=== PATIENT | male | born 1945 | race Caucasian/White ===

== ENCOUNTER → 2020-03-06 14:10 | Outpatient (BNVA) | payer OTHER, SELFPAY | PROVIDERS: Referring Provider Family Medicine; Visit Provider Specialist | DX: M25.569 Pain in unspecified knee (principal); M23.304 Other meniscus derangements, unspecified medial meniscus, left knee | CPT/HCPCS: 73560; 73565 ==

== ENCOUNTER → 2022-01-22 10:44 | Outpatient (BNVA) | payer OTHER, SELFPAY | PROVIDERS: Visit Provider Specialist | DX: M17.12 Unilateral primary osteoarthritis, left knee (principal) | CPT/HCPCS: 73560; 73565 ==

== ENCOUNTER 2022-02-11 08:37 | Day surgery (SDC) | payer OTHER, SELFPAY ==
[2022-02-09 10:13] VITALS: BMI 39.9
[2022-02-11 08:58] VITALS: BP 154/91; PULSE 88; RESP 18; TEMP 36.5; O2SAT 93
[2022-02-11] MEDS: sodium chloride 0.9% 1,000 ML 30 ML IV (09:02)
--- NOTE | 2022-02-11 09:19 | P.ANESASSM_ITS ---
Pre-Anesthetic Assessment Height/Weight: Height 1.73 m Weight 119.295 kg Temp Pulse Resp BP Pulse Ox 97.7 F 88 18 154/91 93 02/11/22 08:58 02/11/22 08:58 02/11/22 08:58 02/11/22 08:58 02/11/22 08:58 Preop Diagnosis: diagnostic Operation Date: 02/11/22 10:00 Proposed Procedures p Colonoscopy 58344/z12.11(Not Applicable) - Jose C Jaffe MD Familial anesthetic complications: None Was Beta Lyndsey taken within 24 hours: Yes Was Clonidine taken within 24 hours: N/A Last intake: Intake Last Liquid Date 02/10/22 Last Liquid Time 22:00 Last Solid Date 02/09/22 Last Solid Time 18:30 Social No alcohol and No tobacco Exam alert, oriented x 3, clear to auscultation bilaterally and regular rate & rhythm Airway Submandibular: within normal limits Cervical ROM: within normal limits Mallampati: Class II Dentition: false CV/HEM Hypertension Metabolic Morbid Obesity [facility] Osteoarthritis/DJD Anesthetic Plan ASA status: 3 Anesthesia: MAC Medications/Allergies Home Medications Medication Instructions Recorded Confirmed Last Taken Type aspirin 650 mg tablet,delayed 650 mg PO BID PRN tab 03/06/20 02/09/22 02/08/22 History release cinnamon bark 500 mg capsule 500 mg PO DAILY 03/06/20 02/09/22 Unknown History (Cinnamon) garlic 1,000 mg capsule 1,000 mg PO DAILY 03/06/20 02/09/22 Unknown History hydrochlorothiazide 12.5 mg tablet 12.5 mg PO DAILY 03/06/20 02/09/22 Unknown History lisinopril 10 mg tablet 10 mg PO DAILY 03/06/20 02/09/22 Unknown History metoprolol tartrate 25 mg tablet 25 mg PO DAILY 03/06/20 02/09/22 Unknown Histo ry omega-3 fatty acids 1,000 mg 1,000 mg PO DAILY 03/06/20 02/09/22 Unknown History capsule (Fish Oil Concentrate) cholecalciferol (vitamin D3) 25 25 mcg PO DAILY 01/19/22 02/09/22 Unknown H istory mcg (1,000 unit) capsule niacin 1,000 mg PO DAILY 01/19/22 02/09/22 Unknown History meloxicam 15 mg tablet 15 mg PO DAILY #30 tab 03/24/22 04/11/22 Unknown Rx Allergies Allergy/AdvReac Type Severity Reaction Status Date / Time No Known Allergies Allergy Verified 01/22/22 10:27 Current Medications Generic Name Dose Route Start Last Admin Trade Name Freq PRN Reason Stop Dose Admin Sodium Chloride 1,000 mls @ 30 mls/hr 02/11/22 09:00 02/11/22 09:02 Sodium Chloride 0.9% IV 02/12/22 08:59 30 mls/hr .Q24H NETTE Administration PFSH Anesthesia Medical History Hypertension Surgical History History of colonoscopy History of foot surgery History of hand surgery Bilateral History of removal of cyst History of tonsillectomy and adenoidectomy Status post left inguinal hernia repair Social History Smoking and tobacco status: former smoker Alcohol intake: current Alcohol intake frequency: holidays/special occasions only Data Anesthesia Cardiac Studies: No Data to Display
--- NOTE | 2022-02-11 09:57 | P.HP_ITS ---
Same Day Surgery H&P Indication for Procedure/HPI DATE OF PROCEDURE: February 11, 2022 CHIEF COMPLAINT/INDICATIONFOR SURGICAL PROCEDURE: colonoscopy PREOP DIAGNOSIS: diagnostic PLANNED PROCEDURE: Operation Date: 02/11/22 10:00 Proposed Procedures p Colonoscopy 96784/z12.11(Not Applicable) - Jose C Jaffe MD Medications/Allergies* Home Medications Medication Instructions Recorded Confirmed Type aspirin 650 mg tablet,delayed 650 mg PO BID PRN tab 03/06/20 02/09/22 History release cinnamon bark 500 mg capsule 500 mg PO DAILY 03/06/20 02/09/22 History (Cinnamon) garlic 1,000 mg capsule 1,000 mg PO DAILY 03/06/20 02/09/22 History hydrochlorothiazide 12.5 mg tablet 12.5 mg PO DAILY 03/06/20 02/09/22 History lisinopril 10 mg tablet 10 mg PO DAILY 03/06/20 02/09/22 History metoprolol tartrate 25 mg tablet 25 mg PO DAILY 03/06/20 02/09/22 History omega-3 fatty acids 1,000 mg 1,000 mg PO DAILY 03/06/20 02/09/22 History capsule (Fish Oil Concentrate) cholecalciferol (vitamin D3) 25 25 mcg PO DAILY 01/19/22 02/09/22 History mcg (1,000 unit) capsule niacin 1,000 mg PO DAILY 01/19/22 02/09/22 History Allergies/Adverse Reactions Allergy/AdvReac Type Severity Reaction Status Date / Time No Known Allergies Allergy Verified 01/22/22 10:27 Current Medications: Generic Name Dose Route Start Last Admin Trade Name Freq PRN Reason Stop Dose Admin Sodium Chloride 1,000 mls @ 30 mls/hr 02/11/22 09:00 02/11/22 09:02 Sodium Chloride 0.9% IV 02/12/22 08:59 30 mls/hr .Q24H NETTE Administration Pertinent History/Comorbid Conditions* Medical History (Updated 01/19/22 @ 11:08 by Jose C Jaffe MD) Hypertension Surgical History (Updated 01/19/22 @ 10:50 by Jose C Jaffe MD) History of colonoscopy History of foot surgery History of hand surgery Bilateral History of removal of cyst History of tonsillectomy and adenoidectomy Status post left inguinal hernia repair Social History Smoking and tobacco status: former smoker Alcohol intake: current Alcohol intake frequency: holidays/special occasions only Pertinent Exam Findings alert, oriented x 3 and regular rate & rhythm Recommendations Surgery/Procedure today Coding Level of Care 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
[2022-02-11 10:29] VITALS: BP 149/83; PULSE 84; RESP 16; TEMP 36.1; O2SAT 94
--- NOTE | 2022-02-11 10:31 | ANE.PACU2 ---
Inpatient post-anesthesia follow up: Airway intact: Yes Vital signs: Temperature 97.7 F Pulse Rate 88 Respiratory Rate 18 Blood Pressure 154/91 Pulse Oximetry 93 Oxygen Delivery Me thod Room Air Oxygen Flow Rate Fraction of Inspir ed Oxygen Hydration adequate: Yes Nausea and vomiting: No Pain level: 1 Mental status: Baseline
[2022-02-11 10:40] VITALS: BP 157/82; PULSE 80; RESP 18; O2SAT 93
== END 2022-02-11 10:54 | disposition home or self-care (01) ==
PROVIDERS: Visit Provider Surgery
PROC: 0DJD8ZZ Inspection of Lower Intestinal Tract, Via Natural or Artificial Opening Endoscopic (ICD-10-PCS; CPT 45378; principal; 2022-02-11 10:00)
DX: Z12.11 Encounter for screening for malignant neoplasm of colon (principal); Z87.891 Personal history of nicotine dependence; K57.30 Diverticulosis of large intestine without perforation or abscess without bleeding; K64.8 Other hemorrhoids; I10 Essential (primary) hypertension; E66.01 Morbid (severe) obesity due to excess calories; Z68.41 Body mass index [BMI] 40.0-44.9, adult; M19.90 Unspecified osteoarthritis, unspecified site; Z79.82 Long term (current) use of aspirin
CPT/HCPCS: G0121; J2704; J7030

== ENCOUNTER → 2022-04-23 07:51 | Outpatient (BNVA) | payer OTHER, SELFPAY | PROVIDERS: Visit Provider Specialist | DX: M17.12 Unilateral primary osteoarthritis, left knee (principal); E66.01 Morbid (severe) obesity due to excess calories | CPT/HCPCS: 99214 ==

== ENCOUNTER → 2022-05-05 09:06 | Day surgery (SDC) | payer OTHER, SELFPAY | PROVIDERS: PCP Family Medicine; Visit Provider Specialist | DX: Z01.818 Encounter for other preprocedural examination (principal) | CPT/HCPCS: 93005 ==

== ENCOUNTER 2022-05-12 09:15 | Observation (INO) | payer OTHER, SELFPAY ==
[2022-05-05 08:54] VITALS: BMI 39.5
--- NOTE | 2022-05-05 09:06 | ECG_ITS ---
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 Measurements Intervals [place] Rate: 63 P: 26 GA: 182 QRS: 18 QRSD: 109 T: 38 QT: 417 QTc: 430 Interpretive Statements SINUS RHYTHM No previous ECG available for comparison Electronically Signed On 05-05-2022 16:58:40 CDT by Johnny Arriaza M.D. [id number]
[2022-05-05 09:32] LABS: Basophils # 0.1 10^3/uL (0.0-0.1); Basophils % 1.2 %; Eosinophils # 0.3 10^3/uL (0.0-0.8); Hematocrit 42.1 % (42.0-52.0); Hemoglobin 13.9 g/dL (11.7-16.6); Lymphocytes % 34.2 %; Mean Corpuscular Hemoglobin 31.2 pg (28.0-34.0); Mean Corpuscular Volume 94.6 fl (80-94); Mean Platelet Volume 9.4 fL (7.4-10.4); Monocytes # 0.7 10^3/uL (0.2-0.9); Monocytes % 11.7 %; Neutrophils # 2.84 10^3/uL (1.8-7.7); Neutrophils % 47.7 %; Nucleated Red Blood Cells % 0 %; Platelet Count 148 10^3/cmm (130-400); Red Blood Count 4.45 10^6/uL (4.1-5.3); Red Cell Distribution Width 13.6 % (12.1-15.1)
--- NOTE | 2022-05-05 09:34 | ANES.PREANE2 ---
Pre-Anesthetic Assessment Height/Weight: Height 1.73 m Weight 117.934 kg Preop Diagnosis: Osteoarthritis of left knee Operation Date: 05/12/22 07:00 Proposed Procedures p Total Knee Arthroplasty left 22516/left ostearthritis knee M17.10(Left) - Juliet Reynoso MD Familial anesthetic complications: None Social No alcohol and No tobacco formeer smoker Exam alert, oriented x 3, clear to auscultation bilaterally and regular rate & rhythm Airway Mallampati: Class III Dentition: false CV/HEM Hypertension Anesthetic Plan ASA status: 2 Anesthesia: General and Regional (specify below) (spinal + adductor canal) Risk of > 500 ml blood loss (7ml/kg in children): Yes, adequate IV access and fluids planned Medications/Allergies Home Medications Medication Instructions Recorded Confirmed Last Taken Type aspirin 650 mg tablet,delayed 650 mg PO BID PRN tab 03/06/20 05/05/22 04/29/22 History release cinnamon bark 500 mg capsule 500 mg PO DAILY 03/06/20 05/05/22 Unknown History (Cinnamon) garlic 1,000 mg capsule 1,000 mg PO DAILY 03/06/20 05/05/22 Unknown History hydrochlorothiazide 12.5 mg tablet 12.5 mg PO DAILY 03/06/20 05/05/22 Unknown History lisinopril 10 mg tablet 10 mg PO DAILY 03/06/20 05/05/22 Unknown History metoprolol tartrate 25 mg tablet 25 mg PO DAILY 03/06/20 05/05/22 Unknown History omega-3 fatty acids 1,000 mg 4,000 mg PO DAILY 03/06/20 05/05/22 Unknown History capsule (Fish Oil Concentrate) cholecalciferol (vitamin D3) 25 25 mcg PO DAILY 01/19/22 05/05/22 Unknown History mcg (1,000 unit) capsule meloxicam 15 mg tablet 15 mg PO DAILY #30 tab 01/22/22 05/05/22 Unknown Rx cetirizine 10 mg tablet (Zyrtec) 10 mg PO DAILY PRN 04/23/22 05/05/22 Unknown History fexofenadine 60 mg tablet (Sharri 60 mg PO DAILY tab 04/23/22 05/05/22 Unknown History Allergy) Allergies Allergy/AdvReac Type Severity Reaction Status Date / Time sulfamethoxazole Allergy ALGY-Hives Verified 05/05/22 08:49 [From Bactrim] trimethoprim [From Bactrim] Allergy ALGY-Hives Verified 05/05/22 08:49 [facility] Anesthesia Medical History Hypertension Surgical History History of colonoscopy (02/11/22) History of foot surgery History of hand surgery Bilateral History of removal of cyst History of tonsillectomy and adenoidectomy Status post left inguinal hernia repair Social History Smoking and tobacco status: former smoker Alcohol intake: current Alcohol intake frequency: holidays/special occasions only Data Anesthesia : 05/05/22 09:10 05/05/22 09:10 Short CBC 05/05/22 Range/Units 09:10 WBC 6.0 (4.0-10.0) 10^3/uL Hgb 13.9 (11.7-16.6) g/dL Hct 42.1 (42.0-52.0) % MCV 94.6 H (80-94) fl Plt Count 148 (130-400) 10^3/cmm Neut % (Auto) 47.7 % Neut # (Auto) 2.84 (1.8-7.7) 10^3/uL Cardiac Studies: No Data to Display
[2022-05-05 09:45] LABS: Alanine Aminotransferase 13 U/L (0-41); Albumin Level 4.1 g/dL (3.5-5.2); Alkaline Phosphatase 66 IU/L (40-130); Anion Gap 15.2 (5-19); Aspartate Amino Transferase 16 U/L (0-40); Blood Urea Nitrogen 14 mg/dL (8-23); Calcium 8.6 mg/dL (8.5-10.5); Carbon Dioxide 24 mmol/L (22-29); Chloride 100 mmol/L (98-107); Globulin 2.7 g/dL (1.3-4.6); Glucose 89 mg/dL (65-115); Osmolality Calculated 280 mOsm/kg (285-295); Potassium 4.2 mmol/L (3.5-5.1); Sodium 135 mmol/L (136-145); Total Bilirubin 0.4 mg/dL (0.15-1.2); Total Protein 6.8 g/dL (6.6-8.7)
[2022-05-05 10:47] LABS: Add Urine Microscopic? NO; Charge for UA Resulting for Rev
[2022-05-05 10:55] LABS: Bilirubin Urine Neg (Negative); Blood Urine Neg (Negative); Glucose Urine UA Norm (Normal); Ketones Urine Negative (Negative); Leukocyte Esterase Urine Negative (Negative); Nitrate Urine Negative (Negative); Protein Urine Neg (Negative); Urine Appearance Clear (CLEAR); Urine Color Yellow (Yellow); Urobilinogen Urine Norm (Negative); pH Urine 7 (5-7)
[2022-05-12] VITALS (19 sets, daily range): BP systolic 101–171; BP diastolic 43–88; PULSE 64–101; RESP 16–19; TEMP 36.1–37.1; O2SAT 95–100; BMI 39.5
[2022-05-12] MEDS: sodium chloride 0.9% 1,000 ML 30 ML IV (06:10)
[2022-05-12] MEDS: acetaminophen 1,000 MG/100 ML PIGGYBACK 400 MG IV ×3 (06:10→22:09)
--- NOTE | 2022-05-12 06:58 | W.PM.OPSUD ---
Surgery/Procedure H&P Update DATE OF PROCEDURE: May 12, 2022 DATE H&P PERFORMED: 04/23/22 H&P UPDATE INFORMATION: I have reviewed H&P completed within last 30 days, I have examined patient prior to procedure, No changes to prior documentation and H&P is in [facility] [place] date indicated PREOP DIAGNOSIS: Left Knee Degenerative joint disease PLANNED PROCEDURE: Operation Date: 05/12/22 07:00 Proposed Procedures p Total Knee Arthroplasty left 12695/left ostearthritis knee M17.10(Left) - Juliet Reynoso MD Related Problem List Diagnoses (1) Osteoarthritis of left knee: Qualifiers: Osteoarthritis type: primary Qualified Code(s): M17.12 - Unilateral primary osteoarthritis, left knee
[2022-05-12] MEDS: ceFAZolin 2,000 MG in sodium chloride 0.9% (plus) 50 ML 100 MG IV ×3 (07:04→23:26)
--- NOTE | 2022-05-12 07:38 | P.ANESUD_ITS ---
Pre-Anesthetic Update Pre-Anesthetic Assessment: Date of Surgery/Procedure: 05/12/22 Preop Elen gnosis: Left Knee Degenerative joint disease Proposed Procedure: Operation Date: 05/12/22 07:00 Proposed Procedures p Total Knee Arthroplasty left 87559/left ostearthritis knee M17.10(Left) - Juliet Reynoso MD Any changes to Pre-Anesthetic Assessment?: No Last Intake: Intake Last Liquid Date 05/11/22 Last Liquid Time 21:30 Last Solid Date 05/11/22 Last Solid Time 21:30 Vitals: Temperature 97.6 F 05/12/22 05:52 Temperature Source Temporal Artery S can 05/12/22 05:52 Pulse Rate 74 05/12/22 05:52 Respiratory Rate 16 05/12/22 05:52 Blood Pressure 171/88 05/12/22 05:52 Blood Pressure Felicitas n 115 05/12/22 05:52 Pulse Oximetry 96 05/12/22 05:52 Oxygen Delivery Me thod 05/12/22 05:52 Exam: Pre-Anes Outpt Exam: alert, oriented x 3, clear to auscultation bilaterally and regular rate & rhythm Cardiac Studies: No Data to Display Anesthesia Procedures Nerve Block: Nerve Block 1: Main Anesthesia: spinal anesthesia block Time Out Performed: Yes Consent: requested by attending/covering physician, from patient, risks and benefits reviewed and patient agrees to proceed Nerve block location: adductor canal (left) Anesthesia monitors applied: pulse oximetry, EKG, BP cuff and oxygen Nerve block position: supine Anesthetic Used: ropivicaine 0.5% Amount of anesthesia used (mL): 20 Ultrasound used to: recognize landmarks Nerve Stimulator Used?: No Interscalene/Femoral BLK: 4 stimuplex 21 g needle used for position and inplane approach Injection: neg aspiration of heme Patient Tolerated Procedure: well Complications: none
[2022-05-12] MEDS: ceFAZolin 1,000 mg SDV 2000 MG IRRIGATION (08:19)
[2022-05-12] MEDS: vancomycin 1,000 MG SDV 1000 MG XX (08:19)
--- NOTE | 2022-05-12 10:52 | XRR_ITS ---
PROCEDURE INFORMATION: Exam: XR Left Knee Exam date and time: 05/12/2022 11:04 AM Age: 77 years old Clinical indication: Device placement; Joint replacement hardware; Prior surgery; Surgery type: Total knee; Additional info: Status post left total knee arthroplasty TECHNIQUE: Imaging protocol: Radiologic exam of the Left knee. Views: 1 or 2 views. COMPARISON: CR XR knees AP WB w LT lmt ORTH 01/22/2022 10:52 AM FINDINGS: Bones/joints: Patient has undergone recent insertion of a total knee prosthesis. Some gas is present in the soft tissues from the recent surgery. No fracture. Soft tissues: See Bones/joints finding. XR/XR knee LT 1-2V 42610 IMPRESSION: Satisfactory appearance of the knee prosthesis.
--- NOTE | 2022-05-12 11:13 | PM.OP ---
Operative Report Date of procedure: May 12, 2022 Pre-op diagnosis: Left Knee Degenerative osteoarthritis Post-op diagnosis: Left Knee Degenerative osteoarthritis Post-op findings: Severe degenerative osteoarthritis with blood-tinged effusion Procedure done: Left total knee arthroplasty Implants: The Anastasiya total knee system with a size 7 triathlon beaded posterior stabilized femur left, a triathlon titanium tibial component size 7 beaded, a triathlon X3 posterior stabilized tibial bearing insert size 7 X 11 mm and a beaded triathlon titanium asymmetric patella size 38 x 11 mm Specimens removed/disposition: Joint fluid sent for gram stain and culture, synovium sent for pathology Pathology: Synovial fluid for analysis Surgeon: Juliet Reynoso Yardage Estimator: [facility] Anesthesia: MAC (With spinal, ASA 2) Estimated blood loss (mL): 100 Tourniquet time (min): 120 (At 250 mmHg) IV fluids (mL): 1,300 Urine output (mL): 250 Complications: None Findings: Large osteophytes, significantly deficient medial tibial plateau, large blood-tinged effusion. Condition: stable Disposition: PACU (Then to floor for postoperative rehabilitation and pain management) Brief History: This 77-year-old gentleman presented to my office with complaints of severe left knee pain. He had severe varus deformity which was only partially correctable. Conservative measures including medications were not successful in controlling his pain. After discussion, the patient wished to proceed with left total knee arthroplasty. Risks and complications were discussed with him. Consents were signed and questions were answered at the time of the office visit. Procedure: The patient was brought to the operating theater, and after undergoing adequate spinal anesthesia supplemented with adductor canal block and MAC, ASA 2, the left lower extremity was prepped with Dura-Prep and draped in usual fashion following placement of a tourniquet high on the leg. The leg was then draped free. Following prepping and draping, the leg was exsanguinated, and the tourniquet was elevated to 250 mmHg for a total tourniquet time of 120 minutes.? Prior to elevation of the tourniquet, but following exposure of the site of surgery, a surgical pause was performed. At the time of the surgical pause, we confirmed the site and side of surgery. Additionally, we confirmed the appropriate and timely administration of preoperative antibiotics, Ancef 2 g and Transexemic acid 1 g.? The availability of equipment was confirmed, and the patient's identity was verbalized as well.? An additional transexemic acid 1 g was given at the end of the surgical procedure as well Following the surgical pause, an incision was made centering over the patella continuing proximally and distally as necessary to allow access to the knee joint. Dissection continued through skin and soft tissues using a scalpel. Hemostasis was obtained using electrocautery. The skin incision was followed by a median parapatellar arthrotomy. The leg was extended and the patella was everted. Following this, the leg was returned to flexed position.? There was a significant blood-tinged effusion noted. There was also noted to be copious synovitis. Specimens were sent to pathology including synovium, and cultures were taken.? Distal femur was exposed, and a drill hole was made in this for placement of the distal femoral jig. The distal femoral jig was set at 5? of valgus. The distal femoral cutting block was then placed in appropriate position, and an scott wing was used to confirm an appropriate amount of distal femur would be resected.? The distal femoral resection was accomplished with 8 mm of bone being resected distally.? After the distal femoral resection was accomplished, the femur was measured, and it measured a size 7.? Medial lateral dimension also measured a size 7.? A size 7 femoral cutting block was placed in position, and we were then able to accomplish the anterior, posterior and chamfer cuts. This jig was then removed, and the notch guide was placed in position. With the notch guide in appropriate position, the notch was excised including resection of the anterior and posterior cruciate ligaments. This notch was to allow for the posterior stabilized femoral component. At this point, the femur was prepared and attention was directed to the proximal tibia.? The posterior knee retractor was placed along with medial and lateral retractors. Further resection of the menisci was accomplished as we had better visualization. A complete meniscectomy was performed both medially and laterally with care being taken to protect the popliteus. Retractors were then placed so that the proximal tibia was well visualized. A drill hole was then made in the tibia for placement of the intramedullary guide. This guide was placed so that approximately 2 mm of bone would be resected from the deficient medial tibial plateau. This resulted in significant, 9 mm, resection from the lateral tibial plateau. The intramedullary guide was utilized supplemented with an extramedullary guide to assure appropriate alignment for the proximal tibial resection. The proximal tibial jig was then evaluated, pinned in position, and the proximal tibial resection was accomplished without difficulty. The jig was removed, and the proximal tibia was measured. It measured a size 7. We then attempted a trial reduction with a size 7 by 9 mm.? Subsequently, the insert was increased to a size 7 x 11 mm. Osteophytes were also removed from the tibia, and a medial release was accomplished to allow the 11 mm to be placed The femoral component was placed in position for the trial reduction, and the knee was placed through range of motion.? With this, there was appropriate patellar tracking. Extension was noted to be full as well.? With had excellent varus valgus alignment.? The knee was stable to varus valgus stress as well.? Therefore, this was the chosen component.? There was full extension and flexion without lift off and the rotation of the tibia was marked.? Alignment was checked from the hip to the ankle, and this was noted to be appropriate as well. Attention was then directed to the patella. The patella was measured with a caliper.? We resected sufficient patella to leave approximately 14 mm of patella remaining.? Measurements of the patella then indicated that a size asymmetric 38 mm x 11 mm was the appropriate patellar size. We then placed the jig to drill for the 3 pegs of the press-fit patella, and these drill holes were made without incident. A trial patella was then placed, and the knee was placed through range of motion. The patella was noted to track nicely without evidence of subluxation.? The femur was prepared for a press-fit femur by drilling 2 holes for the femoral pegs.? All trial components were subsequently removed. The tibial tray was then pinned into position, and we broached the tibia for the stem of the tibial component.? Subsequently, 4 drill holes were made for placement of the press-fit tibia.? This was accomplished without difficulty. Care was taken to assure appropriate rotation of the tibia as well as appropriate position on the proximal tibia. The tibial tray was completely seated on the proximal tibia. Following broaching, the tibial guide was removed, and all surfaces were copiously irrigated. The surfaces were then dried and a bone plug was placed into the distal femur.? Exparel was also subsequently injected. The Tritanium tibia was impacted into position.? The beaded femur was then impacted into position in a cementless fashion. The tibial insert was placed. The patella was pressed into position with a patellar clamp.? The knee was then copiously irrigated with betadine and saline and suctioned dry. Attention was then directed to closure. Closure was accomplished with 0 Vicryl in the fascial tissues.? Following this, a 2-0 Monocryl was used in the subcutaneous tissues, and the skin was closed with skin lanre.? Care was taken to assure an excellent subcutaneous as well as skin closure.? A sterile dressing was then placed consisting of Dermabond Prineo, Telfa, OpSite, sterile soft roll including over the foot, and an Chay wrap. The patient was returned the Recovery Room in a satisfactory condition. X-rays were obtained and reviewed there.? The patient will be discharged to the floor for postoperative rehabilitation and pain management. Related Problem List Diagnoses (1) Osteoarthritis of left knee:
--- NOTE | 2022-05-12 11:32 | SUR.PHASEI ---
PATIENT PEDAL PULSE CHECKED WITH DOPPLER AND MARKED. FIRST ICE PLACED ON LEFT KNEE. FOOT PUMPS ON BOTH FEET WITH PUMPS ON. PATIENT HAS NO PAIN. PATIENT CAN WIGGLE TOES ON BOTH FEET AND SLIGHTLY BEND RIGHT KNEE. HAS FEELING AT BELLY BUTTON LEVEL.
[2022-05-12] MEDS: oxyCODONE 5 mg IR Tab/Cap PO ×3 (13:52→22:12)
[2022-05-12] MEDS: chlorhexidine gluconate 0.12% Btl 473 mL 30 ML MUCOUS MEM ×3 (13:52→22:21)
--- NOTE | 2022-05-12 15:35 | ANE.PACU2 ---
Inpatient post-anesthesia follow up: Airway intact: Yes Vital signs: Temperature 97.0 F Pulse Rate 82 Respiratory Rate 18 Blood Pressure 126/71 Pulse Oximetry 98 Oxygen Delivery Me thod Room Air Oxygen Flow Rate 5 Fraction of Inspir ed Oxygen Hydration adequate: Yes Nausea and vomiting: No Pain level: 2 Mental status: Baseline
[2022-05-12] MEDS: calcium carbonate 500 mg Chew Tablet 1000 MG PO (17:18)
[2022-05-12] MEDS: iron polysaccharide complex 150 mg Capsule PO (17:18)
[2022-05-12] MEDS: sennosides-docusate Tablet 2 TAB PO (17:21)
[2022-05-12] MEDS: ondansetron 2 mg/ML SDV 2 mL 4 MG IVP (17:28)
[2022-05-12] MEDS: mupirocin oint 22 gm 1 APPLIC NASAL (17:35)
[2022-05-13] VITALS (11 sets, daily range): BP systolic 133–162; BP diastolic 69–88; PULSE 90–103; RESP 15–19; TEMP 36.8–37; O2SAT 92–97
[2022-05-13 03:48] LABS: Basophils # 0.1 10^3/uL (0.0-0.1); Basophils % 0.7 %; Eosinophils # 0.1 10^3/uL (0.0-0.8); Hematocrit 34.2 % (42.0-52.0); Hemoglobin 11.6 g/dL (11.7-16.6); Lymphocytes # 1.9 10^3/uL (0.8-4.8); Lymphocytes % 20.7 %; Mean Corpuscular HGB Conc 33.9 g/dL (30.0-36.0); Mean Corpuscular Hemoglobin 31.2 pg (28.0-34.0); Mean Corpuscular Volume 91.9 fl (80-94); Monocytes # 0.9 10^3/uL (0.2-0.9); Monocytes % 9.9 %; Neutrophils # 6.06 10^3/uL (1.8-7.7); Neutrophils % 67.3 %; Nucleated Red Blood Cells % 0 %; Platelet Count 149 10^3/cmm (130-400); Red Blood Count 3.72 10^6/uL (4.1-5.3); Red Cell Distribution Width 13.7 % (12.1-15.1)
[2022-05-13] MEDS: oxyCODONE 5 mg IR Tab/Cap PO ×5 (03:55→21:44)
[2022-05-13 04:16] LABS: Blood Urea Nitrogen 16 mg/dL (8-23); Calcium 8.6 mg/dL (8.5-10.5); Carbon Dioxide 28 mmol/L (22-29); Chloride 101 mmol/L (98-107); Glucose 141 mg/dL (65-115); Osmolality Calculated 290 mOsm/kg (285-295); Sodium 138 mmol/L (136-145)
[2022-05-13 04:18] LABS: Anion Gap 13.4 (5-19); Potassium 4.4 mmol/L (3.5-5.1)
[2022-05-13] MEDS: acetaminophen 1,000 MG/100 ML PIGGYBACK 400 MG IV (06:01)
[2022-05-13] MEDS: ceFAZolin 2,000 MG in sodium chloride 0.9% (plus) 50 ML 100 MG IV (06:20)
[2022-05-13] MEDS: iron polysaccharide complex 150 mg Capsule PO ×2 (08:11→17:49)
[2022-05-13] MEDS: meloxicam 7.5 mg tablet 15 MG PO (09:33)
[2022-05-13] MEDS: calcium carbonate 500 mg Chew Tablet 1000 MG PO ×2 (09:35→17:49)
[2022-05-13] MEDS: cholecalciferol (vitamin D3) 1,000 unit Tablet 1000 UNIT PO (09:35)
[2022-05-13] MEDS: metoprolol succinate ER (24 HR) 25 mg Tablet PO (09:35)
[2022-05-13] MEDS: sennosides-docusate Tablet 2 TAB PO ×2 (09:36→17:49)
[2022-05-13] MEDS: aspirin 325 mg EC Tablet PO (09:37)
[2022-05-13] MEDS: hydroCHLOROthiazide 25 mg Tablet 12.5 MG PO (09:37)
[2022-05-13] MEDS: chlorhexidine gluconate 0.12% Btl 473 mL 30 ML MUCOUS MEM ×4 (09:38→20:32)
[2022-05-13] MEDS: ondansetron 2 mg/ML SDV 2 mL 4 MG IVP ×2 (09:39→16:53)
[2022-05-13] MEDS: mupirocin oint 22 gm 1 APPLIC NASAL ×2 (09:39→17:48)
[2022-05-13] MEDS: lisinopril 10 mg Tablet PO (09:39)
[2022-05-13] MEDS: multivitamin therapeutic Tablet 1 TAB PO (09:40)
--- NOTE | 2022-05-13 12:45 | PM.PN ---
Subjective Subjective: Patient is postop day 1 following total knee arthroplasty. His main complaint involves inability to urinate, and he is urinating in very small amounts. He notes it was painful at the time of removal of the catheter. Medications: Reviewed: Yes Vitals/I&O/Wt Last Vital Signs Temp 98.3 F 05/14/22 11:31 Pulse 88 05/14/22 11:31 Resp 16 05/14/22 13:12 BP 138/68 05/14/22 11:31 Pulse Ox 90 05/14/22 11:31 05/13/22 05/14/22 05/14/22 22:59 06:59 14:59 Intake Total 720 / 1080 560 / 1640 600 / 600 Output Total 825 / 925 350 / 1275 Balance -105 / 155 210 / 365 600 / 600 Weight last 48 hrs Weight 275 lb 8 oz Weight 276 lb 3.2 oz Physical Exam Const: COMMON NORMALS: no acute distress, average body habitus, patient oriented x3 and alert GENERAL APPEARANCE: cooperative and comfortable ORIENTATION/CONSCIOUSNESS: Yes awake HENMT: COMMON NORMALS: normocephalic and atraumatic HEAD & SCALP: normocephalic and atraumatic Eye: GENERAL EYE: appearance normal, both eyes and all related structures Chest: COMMONS NORMALS: normal inspection of the chest Resp: COMMON NORMALS: normal respiratory effort EFFORT & INSPECTION: Yes able to speak in complete sentences and Yes symmetric chest movement : OTHER: Difficulty with urination following Awan removal. Extremity: LEFT LOWER EXTREMITY: Yes knee joint Left knee: Yes inspection (Dressing is dry and intact.), Yes palpation (Minimal to no tenderness.), Yes ROM (Not evaluated.) and Yes neurovascular exam (Intact distally.) Neuro: COMMON NORMALS: patient oriented x3 SENSORIUM/ORIENTATION: Yes alert Psych: COMMON NORMALS: mental status grossly normal APPEARANCE: Yes grossly normal ATTITUDE: Yes calm and Yes engaged ATTENTION/CONCENTRATION: Yes attention grossly intact Skin: COMMON NORMALS: no rashes or lesions noted GENERAL SKIN EXAM: no rashes or lesions noted Urinary Catheter Management: Awan: Cath Placed During This Visit: yes, but has since been removed by the nurse Reason for Continuing Indwelling Catheter: Acute Urinary Retention or Obstruction Urinary Catheter Date of Insertion: 05/13/22 Urinary Catheter Time of Insertion: 15:00 Date Urinary Catheter Removed: 05/13/22 Time Urinary Catheter Discontinued: 06:05 Data : 05/14/22 02:31 05/13/22 03:07 Micro: Microbiology 05/12/22 08:09 Gram Stain - Final Knee - Left Anaerobic Culture - Preliminary Abscess Culture - Preliminary A&P Assessment and plan (1) Status post total left knee replacement not using cement: Patient is postop day 1 following left total knee arthroplasty. From the perspective of his knee, he is doing well and is working with physical therapy. His main complaints include inability to urinate following painful removal of catheter. He is participating with physical therapy, but he will require a medical consultation for evaluation of his urinary issues. Status: Acute (2) Osteoarthritis of left knee: Status: Acute Qualifiers: Osteoarthritis type: primary Qualified Code(s): M17.12 - Unilateral primary osteoarthritis, left knee (3) BPH (benign prostatic hyperplasia): Status: Acute (4) Urinary retention: Status: Acute Attestations Medical Necessity Statement*: Patient requires ongoing medical care for her urologic issues following total knee arthroplasty. 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
--- NOTE | 2022-05-13 13:47 | P.CONIM_ITS ---
Providers/Reason For Consult Consulting Physician/Specialty*: Dr. Levin/Internal medicine Reason for Consult*: Difficult to pass urine Attending Physician: Juliet Reynoso MD Primary Care Provider: Sherlyn Cadena MD History of Present Illness History of Present Illness Chaparro Hoang is a 77 year old male with past medical history of hypertension, BPH PSA who was admitted under orthopedics team and underwent left total knee arthroplasty on 05/12. As per the operative note patient tolerated the procedure well with an estimated blood loss of 100 cc. Today morning patient's Awan catheter was removed. As per the patient and nursing staff patient has been having difficulty passing urine since removal of Awan catheter. Patient states he had some resistance while the Awan catheter was removed and since then he has been having difficulty in passing urine though he is able to pass around 20 to 25 cc of urine every 1 hour. I had asked nursing staff to do a bladder scan and then straight catheterization. On straight catheterization around 500 cc of urine was evacuated along with a blood clot. Since then clear to slightly pink urine is being drained in the Awan bag. Patient states he is feeling better and denies any abdominal pain. Patient stated he had a UTI in 2016 for which she was on oral antibiotics for few days. He states he has had elevated PSA in the past and multiple prostate biopsies which have been benign. He checks his blood pressures at home and usually blood pressures are between 1 40-1 30 systolics. Currently denies any other complaints. Review of Systems General: Reports: 10 or more systems reviewed and unremarkable except in HPI and below Const: Denies: fever(s), chills, body aches, change in appetite, change in weight, malaise, night sweats, diaphoresis, change in sleep pattern, daytime sleepiness or snoring Eyes: Denies: change in vision, blurry vision, photophobia, eye discomfort or eye discharge ENMT: Denies: throat pain, enlarged tonsils, hoarseness, mouth pain, oral sores, dry mouth, tinnitus, nasal congestion or post nasal drip Card: Denies: chest pain, palpitations, irregular heart rhythm, edema, swelling of feet/ankles, lightheadedness, syncope, pre-syncope, dyspnea on exertion, orthopnea, leg pain with exertion or acrocyanosis Resp: Denies: dyspnea, productive cough, non-productive cough, wheezing, stridor, pain on inspiration, change in phlegm color, hemoptysis or chest congestion GI: Denies: abdominal pain, nausea, vomiting, hematemesis, coffee ground emesis, dysphagia, heartburn, diarrhea, constipation, bloating, GI cramping, change in bowel habits, pain on defecation, hematochezia or melena : Denies: flank pain, difficulty urinating, dysuria, urinary frequency, urinary urgency, urinary hesitancy, urinary dribbling, difficulty starting urination, change in urine stream, nocturia or hematuria Musc: Denies: neck pain, back pain, extremity pain, joint pain, joint swelling, joint redness, joint stiffness or limited range of motion Neuro: Denies: headache(s), numbness in extremities, weakness in extremities, sensory changes, lack of coordination, difficulty walking, frequent falls, dizziness, vertigo, confusion, Slurred speech present, difficulty communicating thoughts or seizure-like activity Psych: Denies: anxiety, depression, mood swings, panic attacks, hopelessness or irritability Endo: Denies: polyuria, polydipsia, tired all the time, cold intolerance, excessive sweating, flushing or heat intolerance Lee/Lymph: Denies: easy bruising or easy bleeding All/Imm: Denies: tongue swelling, facial swelling or acute wheezing Medications/Allergies Home Medications Medication Instructions Recorded Confirmed Last Taken Type aspirin 650 mg tablet,delayed 650 mg PO BID PRN tab 03/06/20 05/05/22 04/29/22 History release cinnamon bark 500 mg capsule 500 mg PO DAILY 03/06/20 05/12/22 05/11/22 History (Cinnamon) garlic 1,000 mg capsule 1,000 mg PO DAILY 03/06/20 05/12/22 05/11/22 History hydrochlorothiazide 12.5 mg tablet 12.5 mg PO DAILY 03/06/20 05/12/22 05/11/22 History lisinopril 10 mg tablet 10 mg PO DAILY 03/06/20 05/12/22 05/11/22 History omega-3 fatty acids 1,000 mg 4,000 mg PO DAILY 03/06/20 05/12/22 05/11/22 History capsule (Fish Oil Concentrate) cholecalciferol (vitamin D3) 25 25 mcg PO DAILY 01/19/22 05/12/2205/11/22 History mcg (1,000 unit) capsule meloxicam 15 mg tablet 15 mg PO DAILY #30 tab 01/22/22 05/12/22 05/11/22 Rx cetirizine 10 mg tablet (Zyrtec) 10 mg PO DAILY PRN 04/23/22 05/05/22 Unknown History fexofenadine 60 mg tablet (Sharri 60 mg PO DAILY tab 04/23/22 05/12/22 History Allergy) metoprolol succinate 25 mg 25 mg PO DAILY 05/12/22 05/12/22 Unknown History tablet,extended release 24 hr Allergies Allergy/AdvReac Type Severity Reaction Status Date / Time sulfamethoxazole Allergy ALGY-Hives Verified 05/12/22 05:45 [From Bactrim] trimethoprim [From Bactrim] Allergy ALGY-Hives Verified 05/12/22 05:45 Current Medications Generic Name Dose Route Start Last Admin Trade Name Freq PRN Reason Stop Dose Admin Aspirin 325 mg 05/13/22 09:00 05/13/22 09:37 Aspirin 325 Mg Ec Tablet PO 325 mg DAILY NETTE Administration Calcium Carbonate 1,000 mg 05/12/22 18:00 05/13/22 09:35 Calcium Carbonate 500 Mg Chew Tablet PO 1,000 mg BID NETTE Administration Chlorhexidine Gluconate 30 ml 05/12/22 13:02 05/13/22 12:22 Chlorhexidine Gluconate 0.12% Btl 473 Ml MUCOUS MEM 30 ml QID NETTE Administration Hydrochlorothiazide 12.5 mg 05/13/22 09:00 05/13/22 09:37 Hydrochlorothiazide 25 Mg Tablet PO 12.5 mg DAILY NETTE Administration Lisinopril 10 mg 05/13/22 09:00 05/13/22 09:39 Lisinopril 10 Mg Tablet PO 10 mg DAILY NETTE Administration Meloxicam 15 mg 05/13/22 09:00 05/13/22 09:33 Meloxicam 7.5 Mg Tablet PO 15 mg DAILY NETTE Administration Metoprolol Succinate 25 mg 05/13/22 09:00 05/13/22 09:35 Metoprolol Succinate Er (24 Hr) 25 Mg Tablet PO 25 mg DAILY NETTE Administration Multivitamins Therapeutic 1 tab 05/13/22 09:00 05/13/22 09:40 Multivitamin Therapeutic Tablet PO 1 tab DAILY NETTE Administration Mupirocin 1 applic 05/12/22 18:00 05/13/22 09:39 Mupirocin Oint 22 Gm NASAL 05/17/22 17:59 1 applic BID NETTE Administration Protocol Ondansetron HCl 4 mg 05/12/22 13:02 05/13/22 09:39 Ondansetron 2 Mg/Ml Sdv 2 Ml IVP 4 mg Q6H PRN Administration NAUSEA AND VOMITING Oxycodone HCl 5 mg 05/12/22 13:02 05/13/22 12:19 Oxycodone 5 Mg Ir Tab/Cap PO 5 mg Q4H PRN Administration MODERATE PAIN Polysaccharide Iron Complex 150 mg 05/12/22 18:00 05/13/22 08:11 Iron Polysaccharide Complex 150 Mg Capsule PO 150 mg BIDWM NETTE Administration Senna/Docusate Sodium 2 tab 05/12/22 18:00 05/13/22 09:36 Sennosides-Docusate Tablet PO 2 tab BID NETTE Administration Vitamin D 1,000 unit 05/13/22 09:00 05/13/22 09:35 Cholecalciferol (Vitamin D3) 1,000 Unit Tablet PO 1,000 unit DAILY NETTE Administration PFSH Acute PFSH: Medical History (Updated 05/13/22 @ 16:31 by Americo Levin MD) BPH (benign prostatic hyperplasia) Elevated PSA Hypertension Hypertension Obesity, Class III, BMI 40-49.9 (morbid obesity) Surgical History (Updated 05/13/22 @ 16:31 by Americo Levin MD) History of colonoscopy (02/11/22) History of foot surgery History of hand surgery Bilateral History of removal of cyst History of tonsillectomy and adenoidectomy Status post left inguinal hernia repair Social History Smoking and tobacco status: former smoker Alcohol intake: current Alcohol intake frequency: holidays/special occasions only Vitals/I&O/Wt Last Vital Signs Temp 98.3 F 05/13/22 11:58 Pulse 95 05/13/22 11:58 Resp 18 05/13/22 12:19 BP 162/88 05/13/22 11:58 Pulse Ox 92 05/13/22 11:58 05/12/22 05/13/2205/13/22 22:59 06:59 14:59 Intake Total 390 / 2060 1700 / 3760 360 / 360 Output Total 580 / 1130 1300 / 2430 100 / 100 Balance -190 / 930 400 / 1330 260 / 260 Weight last 48 hrs Weight 125.282 kg Weight 117.934 kg Physical Exam Narrative: General: No acute distress, AO x3, pleasant, morbidly obese, on room air, Awan catheter in place with slightly pink to clear urine HEENT: PERRLA, pupils bilaterally equal and reactive Chest: Normal vesicular breath sounds, no added sounds, equal good air entry bilaterally CVS: S1-S2 regular, no murmurs, no tachycardia, no gallops, no rubs Abdomen: Soft, nontender, no organomegaly, bowel sounds present Neuro: No focal deficits, no facial deformity, AO x3, power 5/5 in all limbs Urinary Catheter Management: Awan: Cath Placed During This Visit: yes, but has since been removed by the nurse Reason for Continuing Indwelling Catheter: Perioperative Use in Selected Surgeries Urinary Catheter Date of Insertion: 05/12/22 Urinary Catheter Time of Insertion: 07:25 Date Urinary Catheter Removed: 05/13/22 Time Urinary Catheter Discontinued: 06:05 Data : 05/13/22 03:07 05/13/22 03:07 Micro: Microbiology 05/12/22 08:09 Gram Stain - Final Knee - Left A&P Assessment and plan (1) S/P total knee arthroplasty: Postoperative day 1. Anticoagulation, physical therapy, pain management as per primary team. Status: Acute (2) Encounter for postoperative care: Status: Acute (3) Urinary retention: Status: Acute (4) Hematuria: Status: Acute (5) BPH (benign prostatic hyperplasia): Status: Acute (6) Hypertension: Status: Acute Plan Urinary retention most likely secondary to combination of BPH and possible traumatic Awan catheterization. Repeat urinalysis. Hold off on any antibiotics for now. Flomax 0.4 once a day. Most likely patient will need to be discharged with Awan catheter in place for at least 1 week to 10 days for traumatic injury to heal. He will need to follow-up with urology as an outpatient. Patient is agreeable. Monitor hemoglobin. Hypertension: Goal blood pressure less than 140/90 on Hg. Slightly elevated today most likely secondary to pain, postoperative status, inability to pass urine. For now continue with lisinopril, hydrochlorothiazide, metoprolol at home dose. Thank you for giving us the opportunity to take care of Mr. Hoang. Please call back with any further question. We will continue to follow. 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
[2022-05-13] MEDS: acetaminophen 500 mg Tablet 1000 MG PO ×2 (14:49→21:43)
[2022-05-13] MEDS: tamsulosin 0.4 mg Capsule PO (14:49)
[2022-05-13 15:09] LABS: Bilirubin Urine Neg (Negative); Blood Urine 3+ (Negative); Glucose Urine UA Trace (Normal); Ketones Urine 1+ (Negative); Nitrate Urine Negative (Negative); Protein Urine 2+ (Negative); Specific Gravity, Urine 1.015 (1.005-1.030); Urine Appearance Cloudy (CLEAR); Urine Color Dark Yellow (Yellow); pH Urine 5 (5-7)
[2022-05-13 15:10] LABS: Add Urine Culture? Yes; Bacteria Urine TRACE /hpf; Leukocyte Esterase Urine 1+ (Negative); RBC Urine >100 /hpf (0-2); Squamous Epithelial Cell Urine 0-4 /hpf (0-5); Urobilinogen Urine 1 mg/dL (Negative); WBC Urine 15-25 /hpf (0-5)
[2022-05-13 17:47] LABS: Iron 21 ug/dL (59-158); Thyroid Stimulating Hormone 0.73 uIU/mL (0.27-4.20); Total Iron Binding Capacity 232 mcg/dl; Unsaturated Iron Binding 211 ug/dL (112-347)
[2022-05-13 18:04] LABS: Charge for UA Resulting for Rev
[2022-05-13 18:45] LABS: Bilirubin Urine Neg (Negative); Blood Urine 3+ (Negative); Glucose Urine UA Norm (Normal); Ketones Urine Negative (Negative); Leukocyte Esterase Urine Negative (Negative); Nitrate Urine Negative (Negative); Protein Urine 1+ (Negative); Specific Gravity, Urine 1.015 (1.005-1.030); Urine Appearance Clear (CLEAR); Urobilinogen Urine Norm (Negative); pH Urine 5 (5-7)
[2022-05-13 18:50] LABS: Add Urine Microscopic? YES
[2022-05-13 19:06] LABS: Urine Color Dark Yellow (Yellow)
[2022-05-14] VITALS (9 sets, daily range): BP systolic 110–138; BP diastolic 64–81; PULSE 88–96; RESP 12–18; TEMP 36.6–37; O2SAT 90–97
[2022-05-14 02:56] LABS: Basophils # 0.1 10^3/uL (0.0-0.1); Basophils % 0.5 %; Eosinophils # 0.1 10^3/uL (0.0-0.8); Eosinophils % 0.9 %; Hematocrit 28.9 % (42.0-52.0); Hemoglobin 9.6 g/dL (11.7-16.6); Lymphocytes # 1.4 10^3/uL (0.8-4.8); Lymphocytes % 15.1 %; Mean Corpuscular HGB Conc 33.2 g/dL (30.0-36.0); Mean Corpuscular Hemoglobin 30.5 pg (28.0-34.0); Mean Corpuscular Volume 91.7 fl (80-94); Mean Platelet Volume 9.7 fL (7.4-10.4); Monocytes # 1.1 10^3/uL (0.2-0.9); Monocytes % 11.3 %; Neutrophils # 6.85 10^3/uL (1.8-7.7); Neutrophils % 71.7 %; Nucleated Red Blood Cells % 0 %; Platelet Count 142 10^3/cmm (130-400); Red Blood Count 3.15 10^6/uL (4.1-5.3); Red Cell Distribution Width 13.7 % (12.1-15.1); White Blood Count 9.6 10^3/uL (4.0-10.0)
[2022-05-14 03:09] LABS: Estmated Average Glucose 105; Hemoglobin A1C 5.3 % (4.0-6.0)
[2022-05-14 03:17] LABS: Chol HDL Ratio 3.28 mg/dL (1.0-5.00); Cholesterol 141 mg/dL (0-200); HDL Cholesterol 43 mg/dL (60-100); LDL Cholesterol Calculated 75 mg/dL (50-129); Triglycerides 116 mg/dL (0-150); VLDL Cholestrol Calculation 23 mg/dL (0-30)
[2022-05-14] MEDS: acetaminophen 500 mg Tablet 1000 MG PO ×3 (06:09→21:09)
[2022-05-14] MEDS: calcium carbonate 500 mg Chew Tablet 1000 MG PO ×2 (08:42→17:56)
[2022-05-14] MEDS: meloxicam 7.5 mg tablet 15 MG PO (08:42)
[2022-05-14] MEDS: cholecalciferol (vitamin D3) 1,000 unit Tablet 1000 UNIT PO (08:43)
[2022-05-14] MEDS: hydroCHLOROthiazide 25 mg Tablet 12.5 MG PO (08:43)
[2022-05-14] MEDS: tamsulosin 0.4 mg Capsule PO (08:44)
[2022-05-14] MEDS: sennosides-docusate Tablet 2 TAB PO ×2 (08:44→17:58)
[2022-05-14] MEDS: iron polysaccharide complex 150 mg Capsule PO ×2 (08:44→17:59)
[2022-05-14] MEDS: multivitamin therapeutic Tablet 1 TAB PO (08:45)
[2022-05-14] MEDS: aspirin 325 mg EC Tablet PO (08:45)
[2022-05-14] MEDS: oxyCODONE 5 mg IR Tab/Cap PO ×3 (08:45→18:05)
[2022-05-14] MEDS: metoprolol succinate ER (24 HR) 25 mg Tablet PO (08:47)
[2022-05-14] MEDS: lisinopril 10 mg Tablet PO (08:48)
[2022-05-14] MEDS: mupirocin oint 22 gm 1 APPLIC NASAL ×2 (08:50→18:00)
[2022-05-14] MEDS: chlorhexidine gluconate 0.12% Btl 473 mL 30 ML MUCOUS MEM ×4 (08:50→21:15)
--- NOTE | 2022-05-14 12:48 | P.PN_ITS ---
Subjective Subjective: No acute events overnight. Patient has been able to pass urine through Awan catheter but he continues to have hematuria. He states today morning during bowel movements when he stressed he passed a few clots after which he started having more hematuria. He denies of having any chest pain, dizziness. Blood pressures have remained stable. Plan as per orthopedic team was to discharge today which has been put on hold because of ongoing hematuria. Vitals/I&O/Wt Last Vital Signs Temp 98.3 F 05/14/22 11:31 Pulse 88 05/14/22 11:31 Resp 16 05/14/22 11:31 BP 138/68 05/14/22 11:31 Pulse Ox 90 05/14/22 11:31 05/13/22 05/14/22 05/14/22 22:59 06:59 14:59 Intake Total 720 / 1080 560 / 1640 600 / 600 Output Total 825 / 925 350 / 1275 Balance -105 / 155 210 / 365 600 / 600 Weight last 48 hrs Weight 124.965 kg Weight 125.282 kg Physical Exam Narrative: General: No acute distress, AO x3, pleasant, morbidly obese, on room air, Awan catheter in place with slightly pink to clear urine HEENT: PERRLA, pupils bilaterally equal and reactive Chest: Normal vesicular breath sounds, no added sounds, equal good air entry bilaterally CVS: S1-S2 regular, no murmurs, no tachycardia, no gallops, no rubs Abdomen: Soft, nontender, no organomegaly, bowel sounds present Neuro: No focal deficits, no facial deformity, AO x3, power 5/5 in all limbs Urinary Catheter Management: Awan: Cath Placed During This Visit: yes, but has since been removed by the nurse Reason for Continuing Indwelling Catheter: Acute Urinary Retention or Obstruction Urinary Catheter Date of Insertion: 05/13/22 Urinary Catheter Time of Insertion: 15:00 Date Urinary Catheter Removed: 05/13/22 Time Urinary Catheter Discontinued: 06:05 Data : 05/14/22 02:31 05/13/22 03:07 Micro: Microbiology 05/12/22 08:09 Gram Stain - Final Knee - Left Anaerobic Culture - Preliminary Abscess Culture - Preliminary A&P Assessment and plan (1) S/P total knee arthroplasty: Postoperative day 2. Anticoagulation, physical therapy, pain management as per primary team. Status: Acute (2) Encounter for postoperative care: Status: Acute (3) Urinary retention: Status: Acute (4) Hematuria: Status: Acute (5) BPH (benign prostatic hyperplasia): Status: Acute (6) Hypertension: Status: Acute Plan Urinary retention most likely secondary to combination of BPH and possible traumatic Awan catheterization. Repeat urinalysis appreciated. Hold off on any antibiotics for now. Flomax 0.4 once a day. Because of ongoing hematuria with drop in hemoglobin to 9.6 today we will consult with Dr. Zayas from urology for further evaluation and management with possible cystoscopy versus CBI. Anemia: Most likely secondary to ongoing hematuria. Continue with oral iron supplementation. Will transfuse if hemoglobin trends below 8. Continue to monitor CBC daily for now. Hypertension: Goal blood pressure less than 140/90 mmHg. Slightly elevated today most likely secondary to pain, postoperative status, i nability to pass urine. For now continue with lisinopril, hydrochlorothiazide, metoprolol at home dose. Care discussed in detail with Dr. Garcia, MANJEET and Dr. Zayas. Plan discussed in detail with patient and patient's family at bedside. All the questions were answered. Thank you for giving us the opportunity to take care of Mr. Hoang. Please call back with any further question. We will continue to follow. 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
--- NOTE | 2022-05-14 13:06 | PM.CONSULT ---
Providers/Reason For Consult Consulting Physician/Specialty*: Urology/Zayas Reason for Consult*: New onset gross hematuria Requesting Physician: Dr. Levin Attending Physician: Juliet Reynoso MD Primary Care Provider: Sherlyn Cadena MD History of Present Illness History of Present Illness Chaparro Hoang is a 77 year old male who I evaluated for the first time today at the request of Dr. Levin for new onset gross hematuria post total knee replacement. Catheter was placed intraoperatively and the urine return was clear. Patient thinks that the urine was clear up until the point the catheter was removed. It appears that the catheter was removed on postop day #1. Patient apparently complained of some difficulty voiding and 16 Turkish Awan catheter was placed with some anson urine with blood clots. Since that time he has had intermittent gross hematuria, some bleeding around the catheter, and at times where the catheter would occlude but then break loose and he would pass a lot of clots and urine. Currently there is very little urine in the tubing but there is some blood. Denies any significant pain at this point. No fever or chills. Recommendations: 1. Remove Awan catheter and replace with 20 Turkish three-way hematuria catheter Couvelaire. Manually irrigate to clear clots and if persistently red we will start CBI with normal saline. 2. We will follow-up later today to assess status. 3. Consider flexible bedside cystoscopy if persistent hematuria. 4. We will cover with antibiotics given his recent knee replacement and multiple instrumentation and intermittent retention. Review of Systems Const: Denies: fever(s) or chills Eyes: Denies: eye discharge ENMT: Denies: hoarseness Card: Denies: chest pain Resp: Denies: productive cough or wheezing GI: Reports: abdominal pain (Intermittently associated with incomplete bladder emptying); Denies: vomiting : Reports: difficulty urinating, dysuria and hematuria; Denies: flank pain Musc: Reports: other (Knee pain postoperatively) Skin/Breast: Denies: rash Neuro: Denies: confusion or Slurred speech present Psych: Denies: anxiety Endo: Denies: flushing Lee/Lymph: Denies: enlarged lymph nodes All/Imm: Denies: urticaria or acute wheezing Medications/Allergies Home Medications Medication Instructions Recorded Confirmed Last Taken Type aspirin 650 mg tablet,delayed 650 mg PO BID PRN tab 03/06/20 05/05/22 04/29/22 History release cinnamon bark 500 mg capsule 500 mg PO DAILY 03/06/20 05/12/22 05/11/22 History (Cinnamon) garlic 1,000 mg capsule 1,000 mg PO DAILY 03/06/20 05/12/22 05/11/22 History hydrochlorothiazide 12.5 mg tablet 12.5 mg PO DAILY 03/06/20 05/12/22 05/11/22 History lisinopril 10 mg tablet 10 mg PO DAILY 03/06/20 05/12/22 05/11/22 History omega-3 fatty acids 1,000 mg 4,000 mg PO DAILY 03/06/20 05/12/22 05/11/22 History capsule (Fish Oil Concentrate) cholecalciferol (vitamin D3) 25 25 mcg PO DAILY 01/19/22 05/12/22 05/11/22 History mcg (1,000 unit) capsule meloxicam 15 mg tablet 15 mg PO DAILY #30 tab 01/22/22 05/12/22 05/11/22 Rx cetirizine 10 mg tablet (Zyrtec) 10 mg PO DAILY PRN 04/23/22 05/05/22 Unknown History fexofenadine 60 mg tablet (Sharri 60 mg PO DAILY tab 04/23/22 05/12/22 05/11/22 History Allergy) metoprolol succinate 25 mg 25 mg PO DAILY 05/12/22 05/12/22 Unknown History tablet,extended release 24 hr Allergies Allergy/AdvReac Type Severity Reaction Status Date / Time sulfamethoxazole Allergy ALGY-Hives Verified 05/12/22 05:45 [From Bactrim] trimethoprim [From Bactrim] Allergy ALGY-Hives Verified 05/12/22 05:45 Current Medications Generic Name Dose Route Start Last Admin Trade Name Freq PRN Reason Stop Dose Admin Acetaminophen 1,000 mg 05/13/22 14:00 05/14/22 06:09 Acetaminophen 500 Mg Tablet PO 1,000 mg Q8H NETTE Administration Aspirin 325 mg 05/13/22 09:00 05/14/22 08:45 Aspirin 325 Mg Ec Tablet PO 325 mg DAILY NETTE Administration Calcium Carbonate 1,000 mg 05/12/22 18:00 05/14/22 08:42 Calcium Carbonate 500 Mg Chew Tablet PO 1,000 mg BID NETTE Administration Chlorhexidine Gluconate 30 ml 05/12/22 13:02 05/14/22 08:50 Chlorhexidine Gluconate 0.12% Btl 473 Ml MUCOUS MEM 30 ml QID NETTE Administration Hydrochlorothiazide 12.5 mg 05/13/22 09:00 05/14/22 08:43 Hydrochlorothiazide 25 Mg Tablet PO 12.5 mg DAILY NETTE Administration Lisinopril 10 mg 05/13/22 09:00 05/14/22 08:48 Lisinopril 10 Mg Tablet PO 10 mg DAILY NETTE Administration Meloxicam 15 mg 05/13/22 09:00 05/14/22 08:42 Meloxicam 7.5 Mg Tablet PO 15 mg DAILY NETTE Administration Metoprolol Succinate 25 mg 05/13/22 09:00 05/14/22 08:47 Metoprolol Succinate Er (24 Hr) 25 Mg Tablet PO 25 mg DAILY [facility] Administration Multivitamins Therapeutic 1 tab 05/13/22 09:00 05/14/22 08:45 Multivitamin Therapeutic Tablet PO 1 tab DAILY NETTE Administration Mupirocin 1 applic 05/12/22 18:00 05/14/22 08:50 Mupirocin Oint 22 Gm NASAL 05/17/22 17:59 1 applic BID [facility] Administration Protocol Ondansetron HCl 4 mg 05/12/22 13:02 05/13/22 16:53 Ondansetron 2 Mg/Ml Sdv 2 Ml IVP 4 mg Q6H PRN Administration NAUSEA AND VOMITING Oxycodone HCl 5 mg 05/12/22 13:02 05/14/22 08:45 Oxycodone 5 Mg Ir Tab/Cap PO 5 mg Q4H PRN Administration MODERATE PAIN Polysaccharide Iron Complex 150 mg 05/12/22 18:00 05/14/22 08:44 Iron Polysaccharide Complex 150 Mg Capsule PO 150 mg BIDWM [facility] Administration Senna/Docusate Sodium 2 tab 05/12/22 18:00 05/14/22 08:44 Sennosides-Docusate Tablet PO 2 tab BID NETTE Administration Tamsulosin HCl 0.4 mg 05/13/22 13:45 05/14/22 08:44 Tamsulosin 0.4 Mg Capsule PO 0.4 mg DAILY [facility] Administration Vitamin D 1,000 unit 05/13/22 09:00 05/14/22 08:43 Cholecalciferol (Vitamin D3) 1,000 Unit Tablet PO 1,000 unit DAILY NETTE Administration PFSH Acute PFSH: Medical History BPH (benign prostatic hyperplasia) Elevated PSA Hypertension Hypertension Obesity, Class III, BMI 40-49.9 (morbid obesity) Surgical History History of colonoscopy (02/11/22) History of foot surgery History of hand surgery Bilateral History of removal of cyst History of tonsillectomy and adenoidectomy Status post left inguinal hernia repair Social History Smoking and tobacco status: former smoker Alcohol intake: current Alcohol intake frequency: holidays/special occasions only Vitals/I&O/Wt Last Vital Signs Temp 98.3 F 05/14/22 11:31 Pulse 88 05/14/22 11:31 Resp 16 05/14/22 11:31 BP 138/68 05/14/22 11:31 Pulse Ox 90 05/14/22 11:31 05/13/22 05/14/22 05/14/22 22:59 06:59 14:59 Intake Total 720 / 1080 560 / 1640 600 / 600 Output Total 825 / 925 350 / 1275 Balance -105 / 155 210 / 365 600 / 600 Weight last 48 hrs Weight 275 lb 8 oz Weight 276 lb 3.2 oz Physical Exam Const: COMMON NORMALS: no acute distress, alert and well nourished GENERAL APPEARANCE: well kempt and well developed ORIENTATION/CONSCIOUSNESS: not confused HENMT: COMMON NORMALS: normocephalic and atraumatic HEAD & SCALP: normocephalic and atraumatic Eye: COMMON NORMALS: conjunctivae normal and no scleral icterus CONJUNCTIVA: Yes conjunctivae normal Neck/C-Spine: COMMON NORMALS: full ROM GENERAL: Yes normal visual inspection Lymph: OTHER: No palpable inguinal lymphadenopathy Chest: OTHER: Normal movements Resp: COMMON NORMALS: normal respiratory effort EFFORT & INSPECTION: No labored and No Actively coughing : OTHER: Normal male genitalia. Uncircumcised phallus. Blood around the catheter near the meatus. Testicles are descended bilateral without mass or tenderness. Grossly normal scrotum. Extremity: NARRATIVE EXTREMITY EXAM: Good range of motion Neuro: COMMON NORMALS: no focal motor deficits SENSORIUM/ORIENTATION: Yes alert Psych: COMMON NORMALS: mental status grossly normal APPEARANCE: Yes grossly normal and Yes well kempt ATTITUDE: Yes calm and Yes engaged Skin: COMMON NORMALS: no rashes or lesions noted and no jaundice GENERAL SKIN EXAM: no rashes or lesions noted Urinary Catheter Management: Awan: Cath Placed During This Visit: yes, but has since been removed by the nurse Reason for Continuing Indwelling Catheter: Acute Urinary Retention or Obstruction Urinary Catheter Date of Insertion: 05/13/22 Urinary Catheter Time of Insertion: 15:00 Date Urinary Catheter Removed: 05/13/22 Time Urinary Catheter Discontinued: 06:05 Data : 05/14/22 02:31 05/13/22 03:07 Micro: Microbiology 05/12/22 08:09 Gram Stain - Final Knee - Left Anaerobic Culture - Preliminary Abscess Culture - Preliminary A&P Assessment and plan (1) Clot retention of urine: Most likely catheter related trauma leading to hematuria and clot retention. No prior history of gross hematuria. [place] that he was voiding reasonably well prior to surgery. Current catheter is not adequately draining the bladder. Recommend replacement with large bore three-way catheter with manual irrigation for some possible CBI. Status: Acute (2) Hematuria: See above Status: Acute Consult Attestations Medical Necessity Statement: See attending. Coding Level of Care Code Acute Principal Investigator for Kristen Hair Diagnoses Clot retention of urine R33.8 Hematuria R31.9
[2022-05-14] MEDS: levoFLOXacin 500 mg Tablet PO (13:14)
--- NOTE | 2022-05-14 13:56 | P.PN_ITS ---
Subjective Subjective: Patient is postop day 2 following total knee arthroplasty. His primary issues are urologic in nature. Awan catheter has been reinserted secondary to inability to urinate following catheter removal. He has been seen by Dr. Zayas as well as by the medical team. Medications: Reviewed: Yes Vitals/I&O/Wt Last Vital Signs Temp 98.3 F 05/14/22 11:31 Pulse 88 05/14/22 11:31 Resp 16 05/14/22 13:12 BP 138/68 05/14/22 11:31 Pulse Ox 90 05/14/22 11:31 05/13/22 05/14/22 05/14/22 22:59 06:59 14:59 Intake Total 720 / 1080 560 / 1640 600 / 600 Output Total 825 / 925 350 / 1275 Balance -105 / 155 210 / 365 600 / 600 Weight last 48 hrs Weight 275 lb 8 oz Weight 276 lb 3.2 oz Physical Exam Const: COMMON NORMALS: no acute distress, average body habitus, patient oriented x3 and alert GENERAL APPEARANCE: cooperative and comfortable ORIENTATION/CONSCIOUSNESS: Yes awake HENMT: COMMON NORMALS: normocephalic and atraumatic HEAD & SCALP: normocephalic and atraumatic Eye: GENERAL EYE: appearance normal, both eyes and all related structures Chest: COMMONS NORMALS: normal inspection of the chest Resp: COMMON NORMALS: normal respiratory effort EFFORT & INSPECTION: Yes able to speak in complete sentences and Yes symmetric chest movement : OTHER: Awan reinserted secondary to urinary retention following removal of initial Awan catheter. Extremity: LEFT LOWER EXTREMITY: Yes knee joint Left knee: Yes inspection (Dressing dry and intact. Minimal swelling or ecchymosis.), Yes palpation (Minimal discomfort.), Yes ROM (Not evaluated, but patient describes flexion to near 90 degrees.) and Yes neurovascular exam (Intact distally.) Neuro: COMMON NORMALS: patient oriented x3 SENSORIUM/ORIENTATION: Yes alert Psych: COMMON NORMALS: mental status grossly normal APPEARANCE: Yes grossly normal ATTITUDE: Yes calm and Yes engaged ATTENTION/CONCENTRATION: Yes attention grossly intact Skin: COMMON NORMALS: no rashes or lesions noted GENERAL SKIN EXAM: no rashes or lesions noted Urinary Catheter Management: Awan: Cath Placed During This Visit: yes, removed by the nurse. Reinsertion required due to retention Reason for Continuing Indwelling Catheter: Acute Urinary Retention or Obstruction Urinary Catheter Date of Insertion: 05/13/22 Urinary Catheter Time of Insertion: 15:00 Date Urinary Catheter Removed: 05/13/22 Time Urinary Catheter Discontinued: 06:05 Data : 05/14/22 02:31 05/13/22 03:07 Micro: Microbiology 05/12/22 08:09 Gram Stain - Final Knee - Left Anaerobic Culture - Preliminary Abscess Culture - Preliminary A&P Assessment and plan (1) Status post total left knee replacement not using cement: Patient is postop day 2 following left total knee arthroplasty. His primary postoperative issue has been that of urinary retention. He has been evaluated by the medical service and by Dr. Zayas. He will need to have an indwelling Awan catheter with potential for irrigation. This catheter is to remain in place over the next 10 or more days to be determined by Dr. Zayas. With regards to his knee, he is doing well. He is working with physical therapy. He has no significant complaints. Status: Acute (2) Urinary retention: Status: Acute (3) BPH (benign prostatic hyperplasia): Status: Acute (4) Obesity, Class III, BMI 40-49.9 (morbid obesity): Status: Acute Attestations Medical Necessity Statement*: Patient continues the need for hospitalization secondary to urinary retention issues and decreasing H&H. Coding Level of Care Code Acute Chronograph Operator for Chg Fwd Diagnoses Status post total left knee replacement not using cement Z96.652 BPH (benign prostatic hyperplasia) N40.0 Urinary retention R33.9 Obesity, Class III, BMI 40-49.9 (morbid obesity) E66.01
--- NOTE | 2022-05-14 15:03 | PC.NURSE ---
Replace hughes Emptied 425 ml of urine, dark reddish anson, prior to removing catheter. Per doctor order, removed 16 qatari catheter. When catheter was being pulled out a thin, foot long blood clot came out. There was another blood clot that appeared when I was cleaning the head of the penis, it was one inch long and 3/4 inch thick. Then using sterile technique a [address] catheter was placed and 400 ml of urine was collected and the color was dark reddish anson plus two blood clots that were 1/2 inch long and thin came out. First irrigation of 50 ml of sterile water had tiny blood clots. I flushed 5 more times with 50 ml of sterile water each time and each time it came back as grapefruit color with no clots.For a total of 300 ml of irrigation. Patient tolerated well, hughes bag placed and doctor was notified of results. Doctor order irrigation PRN.
[2022-05-15] VITALS: BP 118/72; PULSE 99; RESP 19; TEMP 36.8; O2SAT 93
[2022-05-15 03:09] LABS: Basophils % 0.4 %; Eosinophils # 0.2 10^3/uL (0.0-0.8); Hematocrit 25.6 % (42.0-52.0); Hemoglobin 8.9 g/dL (11.7-16.6); Lymphocytes # 1.5 10^3/uL (0.8-4.8); Lymphocytes % 17.8 %; Mean Corpuscular HGB Conc 34.8 g/dL (30.0-36.0); Mean Corpuscular Hemoglobin 31.3 pg (28.0-34.0); Mean Corpuscular Volume 90.1 fl (80-94); Mean Platelet Volume 10.2 fL (7.4-10.4); Monocytes # 0.8 10^3/uL (0.2-0.9); Monocytes % 9.9 %; Neutrophils # 5.65 10^3/uL (1.8-7.7); Neutrophils % 69.3 %; Nucleated Red Blood Cells % 0 %; Platelet Count 151 10^3/cmm (130-400); Red Blood Count 2.84 10^6/uL (4.1-5.3); Red Cell Distribution Width 13.4 % (12.1-15.1); White Blood Count 8.2 10^3/uL (4.0-10.0)
[2022-05-15 03:30] LABS: Alanine Aminotransferase 9 U/L (0-41); Albumin Level 3.1 g/dL (3.5-5.2); Alkaline Phosphatase 57 IU/L (40-130); Anion Gap 10.8 (5-19); Aspartate Amino Transferase 20 U/L (0-40); Blood Urea Nitrogen 20 mg/dL (8-23); Carbon Dioxide 31 mmol/L (22-29); Chloride 95 mmol/L (98-107); Globulin 2.6 g/dL (1.3-4.6); Glucose 146 mg/dL (65-115); Osmolality Calculated 281 mOsm/kg (285-295); Potassium 3.8 mmol/L (3.5-5.1); Sodium 133 mmol/L (136-145); Total Bilirubin 0.3 mg/dL (0.15-1.2); Total Protein 5.7 g/dL (6.6-8.7)
[2022-05-15 04:00] VITALS: BP 130/76; PULSE 99; RESP 18; TEMP 37; O2SAT 96
[2022-05-15] MEDS: acetaminophen 500 mg Tablet 1000 MG PO (05:58)
[2022-05-15] MEDS: levoFLOXacin 500 mg Tablet PO (05:59)
[2022-05-15 08:00] VITALS: BP 126/68; PULSE 99; RESP 14; TEMP 36.7; O2SAT 94
[2022-05-15] MEDS: lisinopril 10 mg Tablet PO (09:17)
[2022-05-15] MEDS: sennosides-docusate Tablet 2 TAB PO (09:17)
[2022-05-15] MEDS: cholecalciferol (vitamin D3) 1,000 unit Tablet 1000 UNIT PO (09:17)
[2022-05-15] MEDS: hydroCHLOROthiazide 25 mg Tablet 12.5 MG PO (09:18)
[2022-05-15] MEDS: metoprolol succinate ER (24 HR) 25 mg Tablet PO (09:19)
[2022-05-15] MEDS: iron polysaccharide complex 150 mg Capsule PO (09:24)
[2022-05-15] MEDS: tamsulosin 0.4 mg Capsule PO (09:25)
[2022-05-15] MEDS: multivitamin therapeutic Tablet 1 TAB PO (09:25)
[2022-05-15] MEDS: calcium carbonate 500 mg Chew Tablet 1000 MG PO (09:25)
[2022-05-15] MEDS: meloxicam 7.5 mg tablet 15 MG PO (10:00)
[2022-05-15] MEDS: oxyCODONE 5 mg IR Tab/Cap PO (10:42)
[2022-05-15 11:42] VITALS: BP 137/75; PULSE 96; RESP 16; TEMP 36.7; O2SAT 93
--- NOTE | 2022-05-15 13:26 | PM.DCS ---
Discharge Providers Date of Admission: 05/12/22 09:15 Date of Discharge: May 15, 2022 Attending Provider at Admission: Juliet Reynoso MD Attending Provider at Discharge: Juliet Reynoso MD Consults: Hospitalist: Americo Levin MD Urologist: Rakesh Zayas MD Primary Care Provider: Sherlyn Cadena MD Diagnoses at Discharge Discharge Diagnosis (1) Status post total left knee replacement not using cement: Status: Acute Permanent problem details: Date of procedure: May 12, 2022 Diagnosis: Left Knee Degenerative osteoarthritis Post-op findings: Severe degenerative osteoarthritis with blood-tinged effusion Procedure done: Left total knee arthroplasty Implants: The [employer] total knee system with a size 7 triathlon beaded posterior stabilized femur left, a triathlon titanium tibial component size 7 beaded, a triathlon X3 posterior stabilized tibial bearing insert size 7 X 11 mm and a beaded triathlon titanium asymmetric patella size 38 x 11 mm (2) Urinary retention: Status: Acute (3) BPH (benign prostatic hyperplasia): Status: Acute (4) Obesity, Class III, BMI 40-49.9 (morbid obesity): Status: Acute Reason for Visit Reason for Visit: left ostearthritis knee M17.10 Brief History: This 77-year-old gentleman presented to my office with complaints of severe left knee pain.? He had severe varus deformity which was only partially correctable.? Conservative measures including medications were not successful in controlling his pain.? After discussion, the patient wished to proceed with left total knee arthroplasty.? Risks and complications were discussed with him.? Consents were signed and questions were answered at the time of the office visit. Hospital Course Hospital Course This 77-year-old gentleman presented to the hospital for left total knee arthroplasty. The procedure was well-tolerated. On the first postoperative day, the patient was working with physical therapy, and he was doing well from an orthopedic standpoint. His Awan catheter was removed, and he was unable to appropriately void. Medicine was consulted to address this issue. Subsequently, consultation was also made with Dr. Zayas from urology. Patient continued to work with physical therapy. His wound was benign. He had no evidence of DVT. There was no significant swelling. After the urologic issues have been appropriately addressed, it was decided that the patient was safe for discharge to home. He will follow-up with Dr. Zayas as directed. He will follow-up with me in approximately 2 weeks time. Physical Exam Const: COMMON NORMALS: no acute distress, average body habitus, patient oriented x3 and alert GENERAL APPEARANCE: cooperative and comfortable ORIENTATION/CONSCIOUSNESS: Yes awake HENMT: COMMON NORMALS: normocephalic and atraumatic HEAD & SCALP: normocephalic and atraumatic Eye: GENERAL EYE: appearance normal, both eyes and all related structures Chest: COMMONS NORMALS: normal inspection of the chest Resp: COMMON NORMALS: normal respiratory effort EFFORT & INSPECTION: Yes able to speak in complete sentences and Yes symmetric chest movement Extremity: LEFT LOWER EXTREMITY: Yes knee joint Left knee: Yes inspection (Minimal swelling. No ecchymosis.), Yes palpation (Minimal tenderness.), Yes ROM (Not evaluated.), Yes neurovascular exam (Intact distally with no evidence of DVT.) and Yes other (OpSite removed and replaced prior to discharge.) Neuro: COMMON NORMALS: patient oriented x3 SENSORIUM/ORIENTATION: Yes alert Psych: COMMON NORMALS: mental status grossly normal APPEARANCE: Yes grossly normal ATTITUDE: Yes calm and Yes engaged ATTENTION/CONCENTRATION: Yes attention grossly intact Skin: COMMON NORMALS: no rashes or lesions noted GENERAL SKIN EXAM: no rashes or lesions noted Urinary Catheter Management: Awan: Cath Placed During This Visit: yes, but has since been removed by the nurse Reason for Continuing Indwelling Catheter: Other Urinary Catheter Date of Insertion: 05/13/22 Urinary Catheter Time of Insertion: 15:00 Date Urinary Catheter Removed: 05/13/22 Time Urinary Catheter Discontinued: 06:05 Discharge Data Studies Completed and Pending Completed Studies During Hospitalization Category Date Time Status XR knee LT 1-2V [id number] Stat Exams 05/12/22 10:52 Completed Pathology: Surgical [PTH] Routine Pth 05/12/22 09:56 Completed Pending at discharge Category Date Time Status Abscess Culture and Gram Stain Stat Lab 05/12/22 08:09 Results Anaerobic Culture Stat Lab 05/12/22 08:09 Results Radiology Impressions Knee X-Ray 05/12/22 10:52 IMPRESSION: Satisfactory appearance of the knee prosthesis. Laboratory Results WBC 8.2 10^3/uL (4.0-10.0) 05/15/22 02:44 RBC 2.84 10^6/uL (4.1-5.3) L 05/15/22 02:44 Hgb 8.9 g/dL (11.7-16.6) L 05/15/22 02:44 Hct 25.6 % (42.0-52.0) L 05/15/22 02:44 MCV 90.1 fl (80-94) 05/15/22 02:44 MCH 31.3 pg (28.0-34.0) 05/15/22 02:44 MCHC 34.8 g/dL (30.0-36.0) 05/15/22 02:44 RDW 13.4 % (12.1-15.1) 05/15/22 02:44 Plt Count 151 10^3/cmm (130-400) 05/15/22 02:44 MPV 10.2 fL (7.4-10.4) 05/15/22 02:44 Neut % (Auto) 69.3 % 05/15/22 02:44 Lymph % (Auto) 17.8 % 05/15/22 02:44 [place] % (Auto) 9.9 % 05/15/22 02:44 Eos % (Auto) 2.0 % 05/15/22 02:44 Baso % (Auto) 0.4 % 05/15/22 02:44 Neut # (Auto) 5.65 10^3/uL (1.8-7.7) 05/15/22 02:44 Lymph # (Auto) 1.5 10^3/uL (0.8-4.8) 05/15/22 02:44 [place] # (Auto) 0.8 10^3/uL (0.2-0.9) 05/15/22 02:44 Eos # (Auto) 0.2 10^3/uL (0.0-0.8) 05/15/22 02:44 Baso # (Auto) 0.0 10^3/uL (0.0-0.1) 05/15/22 02:44 Nucleated RBC % (auto) 0 % 05/15/22 02:44 Nucleated RBCs # 0.0 /100WBC 05/15/22 02:44 Sodium 133 mmol/L (136-145) L 05/15/22 02:44 Potassium 3.8 mmol/L (3.5-5.1) 05/15/22 02:44 Chloride 95 mmol/L (98-107) L 05/15/22 02:44 Carbon Dioxide 31 mmol/L (22-29) H 05/15/22 02:44 Anion Gap 10.8 (5-19) 05/15/22 02:44 BUN 20 mg/dL (8-23) 05/15/22 02:44 Creatinine 1.1 mg/dL (0.7-1.2) 05/15/22 02:44 GFR Calculation Not Reportable 05/15/22 02:44 Glucose 146 mg/dL (65-115) H 05/15/22 02:44 Estimat Average Glucose 105 05/14/22 02:31 Hemoglobin A1c 5.3 % (4.0-6.0) 05/14/22 02:31 Calculated Osmolality 281 mOsm/kg (285-295) L 05/15/22 02:44 Calcium 9.0 mg/dL (8.5-10.5) 05/15/22 02:44 Iron 21 ug/dL (59-158) L 05/13/22 03:07 TIBC 232 mcg/dl 05/13/22 03:07 % Saturation 9.0 % (20-50) L 05/13/22 03:07 Unsat Iron Binding 211 ug/dL (112-347) 05/13/22 03:07 Total Bilirubin 0.3 mg/dL (0.15-1.2) 05/15/22 02:44 AST 20 U/L (0-40) 05/15/22 02:44 ALT 9 U/L (0-41) 05/15/22 02:44 Alkaline Phosphatase 57 IU/L (40-130) 05/15/22 02:44 Total Protein 5.7 g/dL (6.6-8.7) L 05/15/22 02:44 Albumin 3.1 g/dL (3.5-5.2) L 05/15/22 02:44 Globulin 2.6 g/dL (1.3-4.6) 05/15/22 02:44 Triglycerides 116 mg/dL (0-150) 05/14/22 02:31 Cholesterol 141 mg/dL (0-200) 05/14/22 02:31 LDL Cholesterol, Calc 75 mg/dL (50-129) 05/14/22 02:31 Total VLDL Cholesterol 23 mg/dL (0-30) 05/14/22 02:31 HDL Cholesterol 43 mg/dL (60-100) L 05/14/22 02:31 Cholesterol/HDL Ratio 3.28 mg/dL (1.0-5.00) 05/14/22 02:31 TSH 0.73 uIU/mL (0.27-4.20) 05/13/22 03:07 Urine Color Dark yellow (Yellow) 05/13/22 17:44 Urine Appearance Clear (CLEAR) 05/13/22 17:44 Urine pH 5 (5-7) 05/13/22 17:44 Ur Specific [place] 1.015 (1.005-1.030) 05/13/22 17:44 Urine Protein 1+ (Negative) H 05/13/22 17:44 Urine Glucose (UA) Norm (Normal) 05/13/22 17:44 Urine Ketones Negative (Negative) 05/13/22 17:44 Urine Blood 3+ (Negative) H 05/13/22 17:44 Urine Nitrate Negative (Negative) 05/13/22 17:44 Urine Bilirubin Neg (Negative) 05/13/22 17:44 Urine Urobilinogen Norm mg/dL (Negative) 05/13/22 17:44 Ur Leukocyte Esterase Negative (Negative) 05/13/22 17:44 Urine RBC >100 /hpf (0-2) H 05/13/22 13:25 Urine WBC 15-25 /hpf (0-5) H 05/13/22 13:25 Ur Squamous Epith Cells 0-4 /hpf (0-5) H 05/13/22 13:25 Amorphous Sediment Not Reportable 05/13/22 13:25 Urine Bacteria Trace /hpf (NONE) 05/13/22 13:25 Vitals Last Vital Signs Temp 98.0 F 05/15/22 11:42 Pulse 96 05/15/22 11:42 Resp 16 05/15/22 11:42 BP 137/75 05/15/22 11:42 Pulse Ox 93 05/15/22 11:42 Discharge Plan Discharge Patient Disposition: Home Health Service Condition: Stable Prescriptions: New oxycodone 5 mg Tablet 5 mg PO Q4H PRN (Reason: Moderate Pain) 7 Days Qty: 30 0RF acetaminophen 500 mg Tablet 1,000 mg PO Q8H 15 Days Qty: 90 0RF polysaccharide iron complex [Ferrex 150] 150 mg iron Capsule 150 mg PO BIDWM Qty: 30 0RF tamsulosin 0.4 mg Capsule 0.4 mg PO DAILY Qty: 30 0RF Continued meloxicam 15 mg tablet 15 mg PO DAILY Qty: 30 3RF lisinopril 10 mg tablet 10 mg PO DAILY 0RF hydrochlorothiazide 12.5 mg tablet 12.5 mg PO DAILY 0RF omega-3 fatty acids [Fish Oil Concentrate] 1,000 mg capsule 4,000 mg PO DAILY 0RF cinnamon bark [Cinnamon] 500 mg capsule 500 mg PO DAILY 0RF garlic 1,000 mg capsule 1,000 mg PO DAILY 0RF aspirin 650 mg tablet,delayed release (DR/EC) 650 mg PO BID PRN (Reason: PAIN) 0RF cholecalciferol (vitamin D3) 25 mcg (1,000 unit) capsule 25 mcg PO DAILY 0RF cetirizine [Zyrtec] 10 mg tablet 10 mg PO DAILY PRN (Reason: Allergy Symptoms) 0RF fexofenadine [Sharri Allergy] 60 mg tablet 60 mg PO DAILY 0RF metoprolol succinate 25 mg tablet extended release 24 hr 25 mg PO DAILY 0RF Discharge Orders: Discharge Order (Routine); Ordered 05/15/22 Ordered By: Juliet Reynoso Other Ambulatory Orders: DME: Walker (Order) Location: None Selected Ordered By: Juliet Reynoso Referrals: [facility] [place] Home Care ([facility]) [Outside] Sherlyn Cadena MD [Primary Care Provider] - 05/26/22 1:00 pm Rakesh Zayas MD [Physician] - 05/18/22 (You will see Dr. Zayas on Wednesday morning for a voiding trial. Dr. Zayas's office will call you with appointment time and instructions. ) Juliet Reynoso MD [Physician] - 05/25/22 8:15 am Discharge Diet: Advance as tolerated and Usual diet Discharge Activity: Resume usual activity, Increase activity as tolerated, Limit activity as instructed, Use walker/crutches as instructed and As per PT/OT instructions Patient Instructions: Levofloxacin (By mouth), Tamsulosin (By mouth), Awan Catheter Placement and Care (GEN), Knee Replacement (GEN), Opioid Safety Activity Restrictions/Additional Instructions: Ambulate weightbearing as tolerated. Range of motion, gait training, and strengthening per physical therapy. You may shower, but leave dressing in place. Ice and elevate to left lower extremity. Please follow up with your PCP in 1 weeks for repeat CBC Please follow-up with Dr. Zayas in his office on coming Wednesday. You will be going with a Awan catheter. Voiding trial to remove the Awan catheter will be done in Dr. Zayas's office on coming Wednesday. Discharge Attestations Time Spent in Discharge Care*: greater than 30 min Specific Discharge Activities: educating patient, discussing with pcp/other providers and documenting/other paperwork Quality Metrics Clinical Quality Measures [ No reported AMI, CVA or VTE this stay] Coding Level of Care Code Acute [facility] note Diagnoses Status post total left knee replacement not using cement Z96.652 Urinary retention R33.9 BPH (benign prostatic hyperplasia) N40.0 Obesity, Class III, BMI 40-49.9 (morbid obesity) E66.01
--- NOTE | 2022-05-15 13:35 | P.PN_ITS ---
Subjective Subjective: In last 24 hours after urology consultation patient was started on CBI. Overnight patient's urine had cleared up and is on minimal CBI earlier today morning. CBI was turned off and his urine continues to remain clear. Case discussed with Dr. Gonzalez from urology. Can be discharged home if okay with orthopedics with Awan catheter and oral Levaquin. Plan to follow-up with urology office on coming Wednesday for a possible voiding trial. Medications: Reviewed: Yes Vitals/I&O/Wt Last Vital Signs Temp 98.0 F 05/15/22 11:42 Pulse 96 05/15/22 11:42 Resp 16 05/15/22 11:42 BP 137/75 05/15/22 11:42 Pulse Ox 93 05/15/22 11:42 05/14/22 05/15/22 05/15/22 22:59 06:59 14:59 Intake Total 480 / 1080 780 / 1860 120 / 120 Output Total 7250 / 7675 300 / 7975 3700 / 3700 Balance -6770 / -6595 480 / -6115 -3580 / -3580 Weight last 48 hrs Weight 126.144 kg Weight 124.965 kg Physical Exam 2 Narrative: General: No acute distress, AO x3, pleasant, morbidly obese, on room air, Awan catheter in place with slightly pink to clear urine HEENT: PERRLA, pupils bilaterally equal and reactive Chest: Normal vesicular breath sounds, no added sounds, equal good air entry bilaterally CVS: S1-S2 regular, no murmurs, no tachycardia, no gallops, no rubs Abdomen: Soft, nontender, no organomegaly, bowel sounds present Neuro: No focal deficits, no facial deformity, AO x3, power 5/5 in all limbs Urinary Catheter Management: Awan: Cath Placed During This Visit: yes, but has since been removed by the nurse Reason for Continuing Indwelling Catheter: Other Urinary Catheter Date of Insertion: 05/13/22 Urinary Catheter Time of Insertion: 15:00 Date Urinary Catheter Removed: 05/13/22 Time Urinary Catheter Discontinued: 06:05 Data : 05/15/22 02:44 05/15/22 02:44 Micro: Microbiology 05/13/22 13:25 Urine Culture - Final Urine,Clean Catch 05/12/22 08:09 Gram Stain - Final Knee - Left Anaerobic Culture - Preliminary Abscess Culture - Preliminary A&P Assessment and plan (1) S/P total knee arthroplasty: Postoperative day 2. Anticoagulation, physical therapy, pain management as per primary team. Status: Acute (2) Encounter for postoperative care: Status: Acute (3) Urinary retention: Status: Acute (4) Hematuria: Status: Acute (5) BPH (benign prostatic hyperplasia): Status: Acute (6) Hypertension: Status: Acute Plan Urinary retention most likely secondary to combination of BPH and possible traumatic Awan catheterization. Repeat urinalysis appreciated. Levaquin as per urology. Flomax 0.4 once a day. Hematuria has cleared up after CBI. Plan to discharge with Awan catheter. Appreciate Dr. Zayas's recommendation. Anemia: Most likely secondary to ongoing hematuria. Continue with oral iron supplementation. Will transfuse if hemoglobin trends below 8. Continue to monitor CBC daily for now. Hypertension: Goal blood pressure less than 140/90 mmHg. Slightly elevated today most likely secondary to pain, postoperative status, inability to pass urine. For now continue with lisinopril, hydrochlorothiazide, metoprolol at home dose. Patient will be discharged home with Awan catheter. Advised to follow-up with Dr. Zayas on coming Wednesday for a possible voiding trial. Discharged home on oral Levaquin for next 5 days. To be discharged on Flomax. Repeat CBC with PCP in 1 week. Care discussed in detail with Dr. Reynoso, RN and Dr. Zayas. Plan discussed in detail with patient and patient's family at bedside. All the questions were answered. Thank you for giving us the opportunity to take care of Mr. Hoang. Please call back with any further question. We will continue to follow. Attestations Medical Necessity Statement*: As per primary team. Time Spent in Patient Care: Greater than 35 minutes Coding Level of Care Code Acute Physical Biochemist for g Fwd Diagnoses S/P total knee arthroplasty Z96.659 Encounter for postoperative care Z48.89 Urinary retention R33.9 Hematuria R31.9 BPH (benign prostatic hyperplasia) N40.0 Hypertension I10
== END 2022-05-15 15:03 | disposition home health service (06) ==
LOC: MEDSURG 09:15
PROVIDERS: Student in an Organized Health Care Education/Training Program; Admitting Provider Specialist; PCP Family Medicine; Visit Provider Specialist
PROC: (CPT 27447; principal; 2022-05-12 07:00)
DX: M17.12 Unilateral primary osteoarthritis, left knee (principal); R33.9 Retention of urine, unspecified; N40.0 Benign prostatic hyperplasia without lower urinary tract symptoms; R31.9 Hematuria, unspecified; I10 Essential (primary) hypertension; D64.9 Anemia, unspecified; E66.01 Morbid (severe) obesity due to excess calories; Z68.41 Body mass index [BMI] 40.0-44.9, adult; Z87.891 Personal history of nicotine dependence
CPT/HCPCS: 27447; 36415; 51702; 73560; 80048; 80053; 80061; 81001; 81003; 83036; 83540; 83550; 84443; 85025; 87070; 87075; 87086; 87205; 88305; 97110; 97116; 97161; 97166; 97530; C1776; C9290; G0378; J0690; J2370; J2405; J2704; J2795; J3370; J3490; J7030

== ENCOUNTER → 2022-05-18 10:11 | Outpatient (BNVA) | payer OTHER, SELFPAY | PROVIDERS: PCP Family Medicine; Visit Provider Nurse Practitioner Family | DX: R33.8 Other retention of urine (principal) | CPT/HCPCS: 99213 ==

== ENCOUNTER → 2022-05-25 07:52 | Outpatient (BNVA) | payer OTHER, SELFPAY | PROVIDERS: PCP Family Medicine; Visit Provider Nurse Practitioner Family | DX: Z96.652 Presence of left artificial knee joint (principal) | CPT/HCPCS: 73560; 73565; 99024 ==

== ENCOUNTER 2022-06-15 06:00 | Outpatient (RCR) | payer OTHER, SELFPAY | END 2022-07-01 23:59 | disposition home or self-care (01) | LOC: MPT 06:00 | PROVIDERS: PCP Family Medicine; Visit Provider Specialist | DX: M25.562 Pain in left knee (principal) | CPT/HCPCS: 97110; 97161; G0283 ==

== ENCOUNTER → 2022-06-25 08:18 | Outpatient (BNVA) | payer OTHER, SELFPAY | PROVIDERS: PCP Family Medicine; Visit Provider Nurse Practitioner Family | DX: Z96.652 Presence of left artificial knee joint (principal); M10.9 Gout, unspecified | CPT/HCPCS: 73560; 73565; 99214 ==

== ENCOUNTER 2022-07-02 06:00 | Outpatient (RCR) | payer OTHER, SELFPAY | END 2022-07-31 23:59 | disposition home or self-care (01) | LOC: MPT 06:00 | PROVIDERS: PCP Family Medicine; Visit Provider Specialist | DX: Z96.652 Presence of left artificial knee joint (principal); Z47.89 Encounter for other orthopedic aftercare | CPT/HCPCS: 97110; G0283 ==

== ENCOUNTER → 2022-07-03 10:04 | Outpatient (BNVA) | payer OTHER, SELFPAY | PROVIDERS: PCP Family Medicine; Visit Provider Urology | DX: N40.0 Benign prostatic hyperplasia without lower urinary tract symptoms (principal); R33.9 Retention of urine, unspecified; R31.9 Hematuria, unspecified; Z87.898 Personal history of other specified conditions | CPT/HCPCS: 51741; 51798; 81003; 99213 ==

== ENCOUNTER 2022-07-09 20:00 | Outpatient (CLI) | payer OTHER, SELFPAY | END 2022-07-09 20:01 | disposition home or self-care (01) | LOC: SLEEP 07-10 06:57 | PROVIDERS: PCP Family Medicine; Visit Provider Family Medicine | DX: G47.33 Obstructive sleep apnea (adult) (pediatric) (principal) | CPT/HCPCS: 95811 ==

== ENCOUNTER → 2023-01-07 07:49 | Outpatient (BNVA) | payer OTHER, SELFPAY | PROVIDERS: PCP Family Medicine; Visit Provider Urology | DX: R33.9 Retention of urine, unspecified (principal); Z87.828 Personal history of other (healed) physical injury and trauma | CPT/HCPCS: 36415; 51741; 51798; 81003; 84153; 99213 ==

== ENCOUNTER → 2023-08-30 13:02 | Outpatient (BNVA) | payer OTHER, SELFPAY | PROVIDERS: PCP Family Medicine; Visit Provider Specialist | DX: M19.012 Primary osteoarthritis, left shoulder | CPT/HCPCS: 73030; 99214 ==

== ENCOUNTER 2023-10-13 10:51 | Outpatient (CLI) | payer OTHER, SELFPAY ==
--- NOTE | 2023-10-13 11:00 | MR_ITS ---
WS: [id number] MRI LEFT SHOULDER HISTORY: shoulder pain COMPARISON: None available. TECHNIQUE: Multiplanar sequences of the shoulder joint are submitted. Prior resection of the distal clavicle. No subacromial impingement. Partial subluxation of the biceps tendon. There is fluid within the biceps tendon sheath. No os acromion. Fluid in the glenohumeral joint with asymmetric widening. Complete loss of cartilage with subchondral cystic changes. Osteophytic ridging around the humeral head and the glenoid. Mild atrophy of the sup raspinatus muscle. Full-thickness tear in the distal supraspinatus muscle with a fluid gap. Tendinopa thy in the distal subscapularis tendon. Infraspinatus tendon appears intact. There are numerous loose bodies within the joint fluid. These loose bodies are of various sizes. Ther e is a large irregular loose body in the subscapularis recess measuring 2.9 cm. This is probably a cl uster of loose bodies. Abnormal labrum throughout. IMPRESSION: 1. Prior resection of the distal clavicle. 2. Severe osteoarthritic changes surround the humeral head and glenoid with asymmetric widening of th e joint space. Large osteophytes with numerous loose bodies. 3. Large loose body in the subscapularis recess measures 2.9 cm. 4. Full-thickness tear distal supraspinatus tendon without retraction. Distal subscapularis tendinopa thy. 5. Partial subluxation biceps tendon. 6. Abnormal labrum. Diffuse abnormality throughout the labrum.
== END 2023-10-13 10:52 | disposition home or self-care (01) ==
LOC: RAD 10:51
PROVIDERS: PCP Family Medicine; Visit Provider Specialist
DX: M19.012 Primary osteoarthritis, left shoulder (principal); M25.78 Osteophyte, vertebrae; M24.012 Loose body in left shoulder; S46.812A Strain of other muscles, fascia and tendons at shoulder and upper arm level, left arm, initial encounter; X58.XXXA Exposure to other specified factors, initial encounter; Z98.890 Other specified postprocedural states
CPT/HCPCS: 73221

== ENCOUNTER 2024-03-21 20:00 | Outpatient (CLI) | payer OTHER, SELFPAY | END 2024-03-21 20:01 | disposition home or self-care (01) | LOC: SLEEP 03-22 06:15 | PROVIDERS: PCP Family Medicine; Visit Provider Family Medicine | DX: G47.33 Obstructive sleep apnea (adult) (pediatric) (principal) | CPT/HCPCS: 95811 ==